=== PATIENT | female | born 1985 | race Two or more races ===

== ENCOUNTER 2022-01-21 20:09 | Observation (INO) | payer SELFPAY ==
[~2022-01-21] VITALS: Ht 149.9 cm; Wt 66.7 kg
== END 2022-01-21 23:14 | disposition home or self-care (01) ==
LOC: LDRP 20:09 → UNDOADMOB 20:09 → LDRP 20:19 → UNDODISOB 23:14
PROVIDERS: ADMIT Obstetrics & Gynecology Obstetrics; ATTEND Obstetrics & Gynecology Obstetrics
DX: O44.02 Complete placenta previa NOS or without hemorrhage, second trimester (principal); O26.852 Spotting complicating pregnancy, second trimester; O21.2 Late vomiting of pregnancy; Z98.891 History of uterine scar from previous surgery; O99.891 Other specified diseases and conditions complicating pregnancy; M54.50 Low back pain, unspecified; Z3A.26 26 weeks gestation of pregnancy; Z79.899 Other long term (current) drug therapy; Z98.890 Other specified postprocedural states
CPT/HCPCS: 59025; 76815; 76817; 81002; G0378